=== PATIENT | male | born 1960 | race African-American/Black ===

== ENCOUNTER 2023-12-05 07:21 | Emergency (ER) | payer OTHER ==
[~2023-12-05] VITALS: Ht 180.3 cm; Wt 82.0 kg
[2023-12-05] VITALS (7 sets, daily range): BP systolic 108–124; BP diastolic 65–83
[~2023-12-05 07:21] MED LIST: MECLIZINE25 MG PO; MOTRIN200 MG PO
[2023-12-05 07:53] LABS: BASO% 0.3 % (0-3); EOS% 0.3 % (0-8); IMMATURE GRANULOCYTES 0.5 % (0.0-5.0); LYMPH% 13.1 % (15-41); MEAN CELL VOLUME 91.8 fL CALC (80.0-100.0); MEAN CORPUSCULAR HGB 29.7 pG CALC (26.0-32.0); MEAN CORPUSCULAR HGB CONC 32.4 g/dL CAL (32.0-36.0); MONO% 14.9 % (2-13); NEUT# 4.1 thou/uL (1.82-7.42); NEUT% 70.9 % (42-76); RED BLOOD COUNT 3.4 mill/uL (4.70-6.10); RED CELL DISTRI WIDTH 14.1 % (11.5-15.5)
[2023-12-05 07:56] LABS: HEMATOCRIT 31.2 % (39.0-50.0); HEMOGLOBIN 10.1 g/dl (14.0-18.0)
[2023-12-05 08:03] LABS: ALBUMIN 3.5 g/dL (3.2-5.0); BILIRUBIN, TOTAL 0.7 mg/dL (0.2-1.3); POTASSIUM 4.2 mmol/l (3.5-5.1)
== END 2023-12-05 10:27 | disposition designated cancer center or children's hospital (05) | DRG 556 ==
LOC: ED 07:21
PROVIDERS: Family Medicine
DX: M25.562 Pain in left knee (principal); R09.02 Hypoxemia; J45.909 Unspecified asthma, uncomplicated; E78.5 Hyperlipidemia, unspecified; Z96.652 Presence of left artificial knee joint